=== PATIENT | male | born 1940 | race Caucasian/White ===

== ENCOUNTER 2017-08-15 11:11 | Inpatient (IN) | payer MEDICARE, BC ==
[2017-08-15] VITALS (9 sets, daily range): BP systolic 108–141; BP diastolic 56–72
[~2017-08-15] VITALS: Ht 180.3 cm; Wt 88.0 kg
[~2017-08-15 11:11] MED LIST: CARV-50 PO; CLOP75TA35 PO; DABI150C PO; DULO-31 PO; EZET1TAB41 PO; FLO0.4C PO; ISOS30TA6 PO; LANS30CA37 PO; LANTUS SQ; LISI-604 PO; MULT-1074 PO; ZAR2.5T PO
[2017-08-15 11:46] LABS: BASOPHILS # (AUTO) 0.1 X10'3 (0-0.2); BASOPHILS % (AUTO) 1.1 % (0-1); EOSINOPHILS # (AUTO) 0.2 X10'3 (0-0.9); EOSINOPHILS % (AUTO) 4.3 % (0-6); LYMPHOCYTES # (AUTO) 1.1 X10'3 (1.1-4.8); LYMPHOCYTES % (AUTO) 23.5 % (21-51); MEAN CORPUSCULAR HEMOGLOBIN 18.9 PG (27.0-31.0); MEAN CORPUSCULAR HGB CONC 30.7 % (33.0-36.5); MEAN CORPUSCULAR VOLUME 61.4 FL (78-98); MEAN PLATELET VOLUME 8.1 FL (7.4-10.4); MONOCYTES # (AUTO) 0.3 X10'3 (0-0.9); MONOCYTES % (AUTO) 6.8 % (2-12); NEUTROPHILS # (AUTO) 2.9 X10'3 (1.8-7.7); NEUTROPHILS % (AUTO) 64.3 % (42-75); PLATELET COUNT 201 X10'3 (140-440); RED BLOOD COUNT 2.78 X10'6 (4.70-6.10); RED CELL DISTRIBUTION WIDTH 21.2 % (11.5-14.5); WHITE BLOOD COUNT 4.6 X10'3 (4.5-11.0)
[2017-08-15 11:49] LABS: HEMOGLOBIN 5.2 g/dl (14.0-17.9)
[2017-08-15 11:53] LABS: INR 1.3 INR; PROTHROMBIN TIME 13.7 SECONDS (9.0-12.0)
[2017-08-15] MEDS ORDERED: pantoprazole 40 MG vial IV ONE (11:55)
[2017-08-15] MEDS ORDERED: normal saline 1000ML IV soln IV ONE (11:55)
[2017-08-15] MEDS ORDERED: octreotide inj. 1,250 MCG in normal saline 250ml IV soln 250 ML IV ONE (11:55)
[2017-08-15 11:59] LABS: ALANINE AMINOTRANSFERASE 12 U/L (12-78); ALBUMIN 3.7 G/DL (3.4-5.0); ALBUMIN/GLOBULIN RATIO 1.1 (1.1-1.5); ALKALINE PHOSPHATASE 67 IU/L (46-116); ANION GAP 13 (8-16); ASPARTATE AMINO TRANSFERASE 13 U/L (10-37); BILIRUBIN,TOTAL 0.8 MG/DL (0.1-1.0); BLOOD UREA NITROGEN 58 MG/DL (7-18); BUN/CREATININE RATIO 23.5 (5.4-32.0); CHLORIDE 104 MMOL/L (99-107); CREATININE 2.47 MG/DL (0.60-1.10); GLUCOSE 217 MG/DL (70-104); POTASSIUM 4.4 MMOL/L (3.5-5.1); SODIUM 139 MMOL/L (135-145); TOTAL CARBON DIOXIDE 21.7 MMOL/L (24-32); TOTAL PROTEIN 7.1 G/DL (6.4-8.2); eGFR 26 ML/MIN
[2017-08-15 12:14] LABS: ANISOCYTOSIS 3+; HYPOCHROMASIA 2+; PLATELET ESTIMATE NORMAL; POIKILOCYTOSIS 2+; POLYCHROMASIA FEW; TARGET CELLS 1+
[2017-08-15 12:15] LABS: ACANTHOCYTES FEW; ELLIPTOCYTES FEW; TEAR DROP CELLS FEW
[2017-08-15] MEDS ORDERED: ondansetron/PF 4mg/2ml inj IV ONE (13:35)
[2017-08-15 13:53] LABS: CLARITY,URINE CLEAR (Clear); COLOR,URINE YELLOW (Yellow); GLUCOSE, URINE NEGATIVE (Neg); KETONES,URINE NEGATIVE (Neg); LEUKOCYTE ESTERASE ,URINE NEGATIVE (Neg); NITRITES, URINE NEGATIVE (Neg); OCCULT BLOOD,URINE NEGATIVE (Neg); PH,URINE 5.5 (4.8-8.0); PROTEIN,URINE NEGATIVE (Neg); UROBILINOGEN,URINE 0.2 E.U/dL (0.2-1.0)
[2017-08-15 13:54] LABS: UA COLLECTION TYPE URINAL
[2017-08-15] MEDS ORDERED: glucagon, human recombinant 1mg kit SUBCUT PRN (14:10)
[2017-08-15] MEDS ORDERED: potassium Cl 20 mEq SR tablet PO PRN (14:10)
[2017-08-15] MEDS ORDERED: magnesium 2GM in 50ml NS 50 ML IV PRN (14:10)
[2017-08-15] MEDS ORDERED: magnesium Cl slow-release 64mg tablet PO PRN (14:10)
[2017-08-15] MEDS ORDERED: ondansetron/PF 4mg/2ml inj IV PRN (14:10)
[2017-08-15] MEDS ORDERED: dextrose ORAL solution 15 GM/59 ML bottle PO PRN ×2 (14:10)
[2017-08-15] MEDS ORDERED: HYDROcodone/acetaminophen 10/325mg tab PO PRN (14:10)
[2017-08-15] MEDS ORDERED: magnesium 4gm in 100ml NS 100 ML IV PRN (14:10)
[2017-08-15] MEDS ORDERED: mag hydrox/Alum hydrox/simeth 30ml oral suspension PO PRN (14:10)
[2017-08-15] MEDS ORDERED: MESSAGE TO PHARMACY PO ONE (14:10)
[2017-08-15] MEDS ORDERED: potassium Cl 40MEQ/NS 500ml 500 ML IV PRN ×2 (14:10)
[2017-08-15] MEDS ORDERED: insulin Lispro (HumaLOG) vial - multi-dose SQ SCH (14:10)
[2017-08-15] MEDS ORDERED: dextrose 50%-water 50ml dispensing syringe IV PRN ×2 (14:10)
[2017-08-15] MEDS ORDERED: magnesium hydroxide 30ml (MOM) UD suspension PO PRN (14:10)
[2017-08-15] MEDS ORDERED: HYDROcodone/acetaminophen 5mg/325mg tablet PO PRN (14:10)
[2017-08-15] MEDS ORDERED: acetaminophen 325mg tablet PO PRN ×2 (14:10)
[2017-08-15 15:43] LABS: HEMOGLOBIN A1C 8.4 % (4.5-6.2)
[2017-08-15] MEDS ORDERED: pantoprazole 40MG/NS 100ML BAG 100 ML IV SCH (16:00)
[2017-08-15] MEDS: pantoprazole 40MG/NS 100ML BAG 100 ML IV SCH ×3 (18:47→23:22)
[2017-08-15] MEDS: normal saline 1000ml 1,000 ML IV SCH ×2 (18:56→22:09)
[2017-08-15] MEDS ORDERED: proCHLORperazine 10 MG/2 ml inj IV PRN (19:30)
[2017-08-15] MEDS: pravastatin 40mg tablet PO SCH (21:00)
[2017-08-15] MEDS: insulin glargine (Lantus) pen - multi-dose SQ SCH (21:00)
[2017-08-15 22:01] LABS: BASOPHILS % (AUTO) 0 % (0-1); EOSINOPHILS # (AUTO) 0.2 X10'3 (0-0.9); EOSINOPHILS % (AUTO) 2.8 % (0-6); HEMATOCRIT 26.8 % (42.0-52.0); HEMOGLOBIN 8.5 g/dl (14.0-17.9); LYMPHOCYTES # (AUTO) 1.4 X10'3 (1.1-4.8); LYMPHOCYTES % (AUTO) 21.1 % (21-51); MEAN CORPUSCULAR HEMOGLOBIN 21.3 PG (27.0-31.0); MEAN CORPUSCULAR HGB CONC 31.6 % (33.0-36.5); MEAN CORPUSCULAR VOLUME 67.4 FL (78-98); MEAN PLATELET VOLUME 8.5 FL (7.4-10.4); MONOCYTES # (AUTO) 0.6 X10'3 (0-0.9); MONOCYTES % (AUTO) 8.7 % (2-12); NEUTROPHILS # (AUTO) 4.5 X10'3 (1.8-7.7); NEUTROPHILS % (AUTO) 67.4 % (42-75); PLATELET COUNT 175 X10'3 (140-440); RED BLOOD COUNT 3.98 X10'6 (4.70-6.10); RED CELL DISTRIBUTION WIDTH 25.2 % (11.5-14.5); WHITE BLOOD COUNT 6.7 X10'3 (4.5-11.0)
[2017-08-15] MEDS: temazepam 15mg capsule PO PRN (22:52)
[2017-08-15] MEDS ORDERED: ipratropium/albuterol 3ml nebule ONE (23:27)
[2017-08-16] VITALS (11 sets, daily range): BP systolic 108–134; BP diastolic 54–74
[2017-08-16] MEDS: temazepam 15mg capsule PO PRN (02:09)
[2017-08-16] MEDS: normal saline 1000ml 1,000 ML IV SCH ×2 (02:38→15:54)
[2017-08-16] MEDS: ipratropium/albuterol 3ml nebule NEB PRN (04:11)
[2017-08-16] MEDS: pantoprazole 40MG/NS 100ML BAG 100 ML IV SCH ×4 (04:34→21:03)
[2017-08-16] MEDS ORDERED: furosemide 20 MG/2 ML vial IV ONE (05:30)
[2017-08-16 06:41] LABS: ALANINE AMINOTRANSFERASE 23 U/L (12-78); ALBUMIN 3.4 G/DL (3.4-5.0); ALKALINE PHOSPHATASE 75 IU/L (46-116); ANION GAP 11 (8-16); ASPARTATE AMINO TRANSFERASE 17 U/L (10-37); BILIRUBIN,TOTAL 1.7 MG/DL (0.1-1.0); BLOOD UREA NITROGEN 43 MG/DL (7-18); BUN/CREATININE RATIO 22.1 (5.4-32.0); CALCIUM 8.2 MG/DL (8.5-10.1); CHLORIDE 109 MMOL/L (99-107); CREATININE 1.95 MG/DL (0.60-1.10); GLUCOSE 157 MG/DL (70-104); POTASSIUM 4.4 MMOL/L (3.5-5.1); SODIUM 142 MMOL/L (135-145); TOTAL CARBON DIOXIDE 21.7 MMOL/L (24-32); TOTAL PROTEIN 6.8 G/DL (6.4-8.2); eGFR 34 ML/MIN
[2017-08-16 06:51] LABS: BASOPHILS % (AUTO) 0.2 % (0-1); EOSINOPHILS # (AUTO) 0.2 X10'3 (0-0.9); EOSINOPHILS % (AUTO) 2.9 % (0-6); HEMATOCRIT 23.4 % (42.0-52.0); HEMOGLOBIN 7.3 g/dl (14.0-17.9); LYMPHOCYTES # (AUTO) 1.2 X10'3 (1.1-4.8); MEAN CORPUSCULAR HEMOGLOBIN 21.3 PG (27.0-31.0); MEAN CORPUSCULAR HGB CONC 31.3 % (33.0-36.5); MEAN CORPUSCULAR VOLUME 68.1 FL (78-98); MEAN PLATELET VOLUME 8.7 FL (7.4-10.4); MONOCYTES # (AUTO) 0.3 X10'3 (0-0.9); MONOCYTES % (AUTO) 4.7 % (2-12); NEUTROPHILS % (AUTO) 74.2 % (42-75); PLATELET COUNT 187 X10'3 (140-440); RED BLOOD COUNT 3.44 X10'6 (4.70-6.10); RED CELL DISTRIBUTION WIDTH 25.2 % (11.5-14.5); WHITE BLOOD COUNT 6.8 X10'3 (4.5-11.0)
[2017-08-16 07:56] LABS: ANISOCYTOSIS 3+; HYPOCHROMASIA 1+; MICROCYTOSIS 2+; PLATELET ESTIMATE NORMAL; POLYCHROMASIA 2+
[2017-08-16 07:57] LABS: POIKILOCYTOSIS 1+; TARGET CELLS FEW; TEAR DROP CELLS FEW
[2017-08-16] MEDS: K and/or MAG REPLACEMENT MC SCH (08:00)
[2017-08-16] MEDS: duloxetine 30mg CAPSULE.DR PO SCH (09:22)
[2017-08-16] MEDS: tamsulosin 0.4mg capsule PO SCH (09:22)
[2017-08-16] MEDS ORDERED: fentaNYL/PF 50MCG/1 ML 2ML syringe ONE (14:22)
[2017-08-16] MEDS ORDERED: MIDAZolam 5mg/ml 2ml vial ONE (14:23)
[2017-08-16] MEDS ORDERED: LIDOcaine Viscous 15ml cup ONE (14:23)
[2017-08-16] MEDS ORDERED: normal saline 1000ml 1,000 ML IV SCH (15:21)
[2017-08-16] MEDS ORDERED: lidocaine 2% viscous 15 ML cup ***bronch room only MM ONE (15:25)
[2017-08-16] MEDS ORDERED: LIDOcaine Viscous 15ml cup PO ONE (15:25)
[2017-08-16] MEDS ORDERED: simethicone 40mg/0.6ml oral drops 30ml MC ONE (15:25)
[2017-08-16] MEDS ORDERED: MIDAZolam 5mg/5ml vial IV PRN (15:25)
[2017-08-16] MEDS ORDERED: fentaNYL/PF 50MCG/1 ML 2ML syringe IV PRN (15:25)
[2017-08-16] MEDS ORDERED: PEG 3350/Na sulf,bicarb,Cl/KCl oral sol 4 liter bottle PO ONE (17:00)
[2017-08-16 19:08] LABS: BASOPHILS % (AUTO) 0 % (0-1); EOSINOPHILS # (AUTO) 0.2 X10'3 (0-0.9); EOSINOPHILS % (AUTO) 4.2 % (0-6); HEMATOCRIT 23.8 % (42.0-52.0); HEMOGLOBIN 7.4 g/dl (14.0-17.9); LYMPHOCYTES # (AUTO) 1.1 X10'3 (1.1-4.8); LYMPHOCYTES % (AUTO) 20.9 % (21-51); MEAN CORPUSCULAR HEMOGLOBIN 20.9 PG (27.0-31.0); MEAN CORPUSCULAR HGB CONC 30.9 % (33.0-36.5); MEAN CORPUSCULAR VOLUME 67.7 FL (78-98); MEAN PLATELET VOLUME 9.1 FL (7.4-10.4); MONOCYTES # (AUTO) 0.4 X10'3 (0-0.9); MONOCYTES % (AUTO) 6.9 % (2-12); NEUTROPHILS # (AUTO) 3.5 X10'3 (1.8-7.7); PLATELET COUNT 235 X10'3 (140-440); RED BLOOD COUNT 3.52 X10'6 (4.70-6.10); RED CELL DISTRIBUTION WIDTH 25.3 % (11.5-14.5); WHITE BLOOD COUNT 5.2 X10'3 (4.5-11.0)
[2017-08-16] MEDS: insulin glargine (Lantus) pen - multi-dose SQ SCH (21:00)
[2017-08-16] MEDS: pravastatin 40mg tablet PO SCH (21:02)
[2017-08-17] VITALS (7 sets, daily range): BP systolic 110–138; BP diastolic 66–90
[2017-08-17] MEDS: ipratropium/albuterol 3ml nebule NEB PRN ×3 (00:56→20:16)
[2017-08-17] MEDS: pantoprazole 40MG/NS 100ML BAG 100 ML IV SCH ×5 (02:03→21:25)
[2017-08-17] MEDS: normal saline 1000ml 1,000 ML IV SCH (05:02)
[2017-08-17 05:58] LABS: BASOPHILS # (AUTO) 0.1 X10'3 (0-0.2); BASOPHILS % (AUTO) 0.7 % (0-1); EOSINOPHILS # (AUTO) 0.2 X10'3 (0-0.9); EOSINOPHILS % (AUTO) 2.1 % (0-6); HEMATOCRIT 22.9 % (42.0-52.0); LYMPHOCYTES # (AUTO) 1.1 X10'3 (1.1-4.8); LYMPHOCYTES % (AUTO) 15.2 % (21-51); MEAN CORPUSCULAR HEMOGLOBIN 20.8 PG (27.0-31.0); MEAN CORPUSCULAR HGB CONC 30.8 % (33.0-36.5); MEAN CORPUSCULAR VOLUME 67.7 FL (78-98); MEAN PLATELET VOLUME 8.6 FL (7.4-10.4); MONOCYTES # (AUTO) 0.6 X10'3 (0-0.9); MONOCYTES % (AUTO) 7.9 % (2-12); NEUTROPHILS # (AUTO) 5.5 X10'3 (1.8-7.7); NEUTROPHILS % (AUTO) 74.1 % (42-75); PLATELET COUNT 181 X10'3 (140-440); RED BLOOD COUNT 3.38 X10'6 (4.70-6.10); RED CELL DISTRIBUTION WIDTH 25.8 % (11.5-14.5); WHITE BLOOD COUNT 7.4 X10'3 (4.5-11.0)
[2017-08-17 07:10] LABS: ALANINE AMINOTRANSFERASE 21 U/L (12-78); ALBUMIN 3.4 G/DL (3.4-5.0); ALKALINE PHOSPHATASE 71 IU/L (46-116); ANION GAP 14 (8-16); ASPARTATE AMINO TRANSFERASE 17 U/L (10-37); BILIRUBIN,TOTAL 1.6 MG/DL (0.1-1.0); BLOOD UREA NITROGEN 32 MG/DL (7-18); BUN/CREATININE RATIO 16.7 (5.4-32.0); CALCIUM 8.2 MG/DL (8.5-10.1); CHLORIDE 106 MMOL/L (99-107); CREATININE 1.92 MG/DL (0.60-1.10); GLUCOSE 174 MG/DL (70-104); MAGNESIUM 1.7 MG/DL (1.5-2.4); SODIUM 141 MMOL/L (135-145); TOTAL CARBON DIOXIDE 21.3 MMOL/L (24-32); TOTAL PROTEIN 6.8 G/DL (6.4-8.2); eGFR 34 ML/MIN
[2017-08-17 07:14] LABS: ANISOCYTOSIS 3+; MICROCYTOSIS 2+; PLATELET ESTIMATE NORMAL
[2017-08-17 07:15] LABS: ELLIPTOCYTES 1+; HYPOCHROMASIA 1+; POLYCHROMASIA 2+; SCHISTOCYTES FEW; TEAR DROP CELLS FEW
[2017-08-17] MEDS: K and/or MAG REPLACEMENT MC SCH (07:45)
[2017-08-17] MEDS: tamsulosin 0.4mg capsule PO SCH (07:47)
[2017-08-17] MEDS: duloxetine 30mg CAPSULE.DR PO SCH (07:47)
[2017-08-17] MEDS ORDERED: normal saline 1000ml 1,000 ML IV SCH (09:54)
[2017-08-17] MEDS ORDERED: simethicone 40mg/0.6ml oral drops 30ml MC ONE (09:55)
[2017-08-17] MEDS ORDERED: fentaNYL/PF 50MCG/1 ML 2ML syringe IV PRN (09:55)
[2017-08-17] MEDS ORDERED: MIDAZolam 5mg/5ml vial IV PRN (09:55)
[2017-08-17] MEDS ORDERED: fentaNYL/PF 50MCG/1 ML 2ML syringe ONE (10:55)
[2017-08-17] MEDS ORDERED: MIDAZolam 5mg/ml 2ml vial ONE (10:55)
[2017-08-17 14:38] LABS: BASOPHILS % (AUTO) 0.5 % (0-1); EOSINOPHILS # (AUTO) 0.2 X10'3 (0-0.9); EOSINOPHILS % (AUTO) 3.1 % (0-6); HEMATOCRIT 23.6 % (42.0-52.0); HEMOGLOBIN 7.3 g/dl (14.0-17.9); LYMPHOCYTES # (AUTO) 0.9 X10'3 (1.1-4.8); LYMPHOCYTES % (AUTO) 17.7 % (21-51); MEAN CORPUSCULAR HEMOGLOBIN 20.6 PG (27.0-31.0); MEAN CORPUSCULAR VOLUME 66.5 FL (78-98); MEAN PLATELET VOLUME 10.4 FL (7.4-10.4); MONOCYTES # (AUTO) 0.3 X10'3 (0-0.9); MONOCYTES % (AUTO) 6.3 % (2-12); NEUTROPHILS # (AUTO) 3.7 X10'3 (1.8-7.7); NEUTROPHILS % (AUTO) 72.4 % (42-75); PLATELET COUNT 197 X10'3 (140-440); RED BLOOD COUNT 3.55 X10'6 (4.70-6.10); RED CELL DISTRIBUTION WIDTH 25.4 % (11.5-14.5); WHITE BLOOD COUNT 5.1 X10'3 (4.5-11.0)
[2017-08-17] MEDS: insulin glargine (Lantus) pen - multi-dose SQ SCH (21:00)
[2017-08-17] MEDS: pravastatin 40mg tablet PO SCH (21:00)
[2017-08-17] MEDS: temazepam 15mg capsule PO PRN (23:59)
[2017-08-18] VITALS (11 sets, daily range): BP systolic 114–136; BP diastolic 64–74
[2017-08-18] MEDS: normal saline 1000ml 1,000 ML IV SCH ×3 (02:12→23:12)
[2017-08-18] MEDS: pantoprazole 40MG/NS 100ML BAG 100 ML IV SCH ×4 (02:16→19:26)
[2017-08-18 05:50] LABS: BASOPHILS # (AUTO) 0.1 X10'3 (0-0.2); BASOPHILS % (AUTO) 1.2 % (0-1); EOSINOPHILS # (AUTO) 0.2 X10'3 (0-0.9); EOSINOPHILS % (AUTO) 4.8 % (0-6); LYMPHOCYTES # (AUTO) 0.8 X10'3 (1.1-4.8); LYMPHOCYTES % (AUTO) 16.3 % (21-51); MEAN CORPUSCULAR HEMOGLOBIN 20.9 PG (27.0-31.0); MEAN CORPUSCULAR HGB CONC 30.7 % (33.0-36.5); MEAN PLATELET VOLUME 8.5 FL (7.4-10.4); MONOCYTES # (AUTO) 0.4 X10'3 (0-0.9); MONOCYTES % (AUTO) 7.3 % (2-12); NEUTROPHILS # (AUTO) 3.5 X10'3 (1.8-7.7); NEUTROPHILS % (AUTO) 70.4 % (42-75); PLATELET COUNT 164 X10'3 (140-440); RED BLOOD COUNT 3.22 X10'6 (4.70-6.10)
[2017-08-18 05:57] LABS: HEMATOCRIT 21.9 % (42.0-52.0); HEMOGLOBIN 6.7 g/dl (14.0-17.9)
[2017-08-18 06:34] LABS: ANISOCYTOSIS 3+; HYPOCHROMASIA 1+; MICROCYTOSIS 2+; PLATELET ESTIMATE NORMAL; POIKILOCYTOSIS FEW; POLYCHROMASIA 2+; TARGET CELLS FEW
[2017-08-18 06:35] LABS: ALANINE AMINOTRANSFERASE 19 U/L (12-78); ALBUMIN 3.1 G/DL (3.4-5.0); ALBUMIN/GLOBULIN RATIO 0.9 (1.1-1.5); ALKALINE PHOSPHATASE 65 IU/L (46-116); ANION GAP 14 (8-16); ASPARTATE AMINO TRANSFERASE 16 U/L (10-37); BILIRUBIN,TOTAL 1.4 MG/DL (0.1-1.0); BLOOD UREA NITROGEN 20 MG/DL (7-18); BUN/CREATININE RATIO 13.2 (5.4-32.0); CALCIUM 8.1 MG/DL (8.5-10.1); CHLORIDE 106 MMOL/L (99-107); CREATININE 1.52 MG/DL (0.60-1.10); ELLIPTOCYTES 1+; GLUCOSE 149 MG/DL (70-104); MAGNESIUM 1.7 MG/DL (1.5-2.4); POTASSIUM 3.4 MMOL/L (3.5-5.1); SODIUM 142 MMOL/L (135-145); TOTAL PROTEIN 6.4 G/DL (6.4-8.2); eGFR 45 ML/MIN
[2017-08-18] MEDS: K and/or MAG REPLACEMENT MC SCH (06:52)
[2017-08-18] MEDS: tamsulosin 0.4mg capsule PO SCH (06:56)
[2017-08-18] MEDS: potassium Cl 20 mEq SR tablet PO PRN ×2 (06:56→14:03)
[2017-08-18] MEDS: duloxetine 30mg CAPSULE.DR PO SCH (06:56)
[2017-08-18] MEDS: levoFLOXACIN-Levaquin 750MG/D5 150 ML IV SCH (07:01)
[2017-08-18] MEDS ORDERED: acetaminophen 325mg tablet PO ONE (08:40)
[2017-08-18] MEDS ORDERED: diphenhydrAMINE 25mg capsule PO ONE (08:40)
[2017-08-18] MEDS ORDERED: furosemide 20 MG/2 ML vial IV ONE (08:40)
[2017-08-18] MEDS ORDERED: heparin sodium, porcine/PF 100unit/ml 5ML syringe ONE (09:42)
[2017-08-18 15:06] LABS: EOSINOPHILS # (AUTO) 0.2 X10'3 (0-0.9); EOSINOPHILS % (AUTO) 4.8 % (0-6); HEMATOCRIT 24.1 % (42.0-52.0); HEMOGLOBIN 7.5 g/dl (14.0-17.9); LYMPHOCYTES # (AUTO) 0.9 X10'3 (1.1-4.8); LYMPHOCYTES % (AUTO) 18.9 % (21-51); MEAN CORPUSCULAR HEMOGLOBIN 21.9 PG (27.0-31.0); MEAN CORPUSCULAR HGB CONC 31.1 % (33.0-36.5); MEAN CORPUSCULAR VOLUME 70.5 FL (78-98); MEAN PLATELET VOLUME 9.1 FL (7.4-10.4); MONOCYTES # (AUTO) 0.4 X10'3 (0-0.9); MONOCYTES % (AUTO) 8.3 % (2-12); NEUTROPHILS # (AUTO) 3.3 X10'3 (1.8-7.7); PLATELET COUNT 191 X10'3 (140-440); RED BLOOD COUNT 3.41 X10'6 (4.70-6.10); RED CELL DISTRIBUTION WIDTH 28.3 % (11.5-14.5)
[2017-08-18] MEDS: pravastatin 40mg tablet PO SCH (20:58)
[2017-08-18] MEDS: insulin glargine (Lantus) pen - multi-dose SQ SCH (21:00)
[2017-08-18] MEDS: temazepam 15mg capsule PO PRN (21:00)
[2017-08-18 21:48] LABS: HEMATOCRIT 26.1 % (42.0-52.0); HEMOGLOBIN 8.3 g/dl (14.0-17.9); MEAN CORPUSCULAR HEMOGLOBIN 22.3 PG (27.0-31.0); MEAN CORPUSCULAR HGB CONC 31.9 % (33.0-36.5); MEAN CORPUSCULAR VOLUME 70.1 FL (78-98); MEAN PLATELET VOLUME 10.6 FL (7.4-10.4); PLATELET COUNT 193 X10'3 (140-440); RED BLOOD COUNT 3.73 X10'6 (4.70-6.10); RED CELL DISTRIBUTION WIDTH 28.7 % (11.5-14.5); WHITE BLOOD COUNT 5.3 X10'3 (4.5-11.0)
[2017-08-19] VITALS: BP 141/74
[2017-08-19] MEDS: pantoprazole 40MG/NS 100ML BAG 100 ML IV SCH ×5 (00:41→16:00)
[2017-08-19 07:00] VITALS: BP 137/79
[2017-08-19] MEDS: tamsulosin 0.4mg capsule PO SCH (07:28)
[2017-08-19] MEDS: duloxetine 30mg CAPSULE.DR PO SCH (07:28)
[2017-08-19] MEDS: levoFLOXACIN-Levaquin 750MG/D5 150 ML IV SCH (07:28)
[2017-08-19 07:56] LABS: BASOPHILS # (AUTO) 0.1 X10'3 (0-0.2); EOSINOPHILS # (AUTO) 0.1 X10'3 (0-0.9); EOSINOPHILS % (AUTO) 2.9 % (0-6); HEMATOCRIT 27.1 % (42.0-52.0); HEMOGLOBIN 8.6 g/dl (14.0-17.9); LYMPHOCYTES % (AUTO) 20.3 % (21-51); MEAN CORPUSCULAR HEMOGLOBIN 22.6 PG (27.0-31.0); MEAN CORPUSCULAR HGB CONC 31.6 % (33.0-36.5); MEAN CORPUSCULAR VOLUME 71.7 FL (78-98); MONOCYTES # (AUTO) 0.5 X10'3 (0-0.9); NEUTROPHILS # (AUTO) 3.3 X10'3 (1.8-7.7); NEUTROPHILS % (AUTO) 65.8 % (42-75); PLATELET COUNT 184 X10'3 (140-440); RED BLOOD COUNT 3.78 X10'6 (4.70-6.10); RED CELL DISTRIBUTION WIDTH 29.3 % (11.5-14.5)
[2017-08-19] MEDS: K and/or MAG REPLACEMENT MC SCH (08:00)
[2017-08-19] MEDS ORDERED: furosemide 20 MG/2 ML vial IV SCH (08:00)
[2017-08-19 08:37] LABS: % IRON SATURATION 5 % (11-46); IRON 20 UG/DL (53-167); TOTAL IRON BINDING CAPACITY 389 UG/DL (259-388)
[2017-08-19 09:02] LABS: ALANINE AMINOTRANSFERASE 19 U/L (12-78); ALBUMIN 3.2 G/DL (3.4-5.0); ALBUMIN/GLOBULIN RATIO 0.9 (1.1-1.5); ALKALINE PHOSPHATASE 72 IU/L (46-116); ANION GAP 15 (8-16); ASPARTATE AMINO TRANSFERASE 15 U/L (10-37); BLOOD UREA NITROGEN 18 MG/DL (7-18); BUN/CREATININE RATIO 11.3 (5.4-32.0); CALCIUM 8.5 MG/DL (8.5-10.1); CHLORIDE 107 MMOL/L (99-107); FERRITIN 21 NG/ML (26-388); GLUCOSE 148 MG/DL (70-104); MAGNESIUM 1.5 MG/DL (1.5-2.4); POTASSIUM 3.8 MMOL/L (3.5-5.1); SODIUM 143 MMOL/L (135-145); TOTAL CARBON DIOXIDE 21.5 MMOL/L (24-32); TOTAL PROTEIN 6.9 G/DL (6.4-8.2); eGFR 42 ML/MIN
[2017-08-19 11:00] VITALS: BP 147/93
[2017-08-19 12:12] LABS: PLATELET ESTIMATE NORMAL
[2017-08-19 12:27] LABS: ANISOCYTOSIS 3+
[2017-08-19 12:28] LABS: ELLIPTOCYTES 1+; HYPOCHROMASIA 2+; MICROCYTOSIS 1+; TEAR DROP CELLS 1+
[2017-08-19 12:40] LABS: POLYCHROMASIA 2+
[2017-08-19] MEDS: normal saline 1000ml 1,000 ML IV SCH (14:09)
[2017-08-19 14:22] LABS: BASOPHILS % (AUTO) 0 % (0-1); EOSINOPHILS # (AUTO) 0.3 X10'3 (0-0.9); EOSINOPHILS % (AUTO) 4.6 % (0-6); HEMATOCRIT 28.7 % (42.0-52.0); HEMOGLOBIN 9.2 g/dl (14.0-17.9); LYMPHOCYTES % (AUTO) 15.4 % (21-51); MEAN CORPUSCULAR VOLUME 71.8 FL (78-98); MEAN PLATELET VOLUME 10.6 FL (7.4-10.4); MONOCYTES # (AUTO) 0.6 X10'3 (0-0.9); MONOCYTES % (AUTO) 9.1 % (2-12); NEUTROPHILS # (AUTO) 4.6 X10'3 (1.8-7.7); NEUTROPHILS % (AUTO) 70.9 % (42-75); PLATELET COUNT 236 X10'3 (140-440); RED BLOOD COUNT 3.99 X10'6 (4.70-6.10); RED CELL DISTRIBUTION WIDTH 29.8 % (11.5-14.5); WHITE BLOOD COUNT 6.4 X10'3 (4.5-11.0)
[2017-08-19] MEDS ORDERED: VITC500T PO (18:07)
[2017-08-19] MEDS ORDERED: FURO-149 PO (18:13)
[2017-08-19] MEDS ORDERED: FERR325T28 PO (18:14)
[2017-08-19] MEDS ORDERED: SENN-161 PO (18:14)
[2017-08-19 19:15] VITALS: BP 132/76
[2017-08-19] MEDS ORDERED: lactobacillus rhamnosus 10,000 MMU CELLS/CAPSULE PO SCH (20:00)
[2017-08-20] MEDS ORDERED: levoFLOXACIN 750MG TABLET PO SCH (11:00)
[2017-08-21] MEDS ORDERED: levoFLOXACIN 750MG TABLET PO SCH (08:00)
[2017-08-21 12:02] LABS: OCCULT BLOOD STOOL POSITIVE (Neg)
== END 2017-08-19 19:40 | disposition home or self-care (01) | DRG 377 ==
LOC: ER 11:12 → ED HOLD 13:35 → MED 3N 15:11
PROVIDERS: ADMIT Internal Medicine; ATTEND Family Medicine
PROC: 30233N1 Transfusion of Nonautologous Red Blood Cells into Peripheral Vein, Percutaneous Approach (ICD-10-PCS; 2017-08-15)
PROC: 0DJ08ZZ Inspection of Upper Intestinal Tract, Via Natural or Artificial Opening Endoscopic (ICD-10-PCS; principal; 2017-08-16)
PROC: 0DBK8ZX Excision of Ascending Colon, Via Natural or Artificial Opening Endoscopic, Diagnostic (ICD-10-PCS; 2017-08-17)
PROC: 0DBL8ZX Excision of Transverse Colon, Via Natural or Artificial Opening Endoscopic, Diagnostic (ICD-10-PCS; 2017-08-17)
PROC: 0DBN8ZX Excision of Sigmoid Colon, Via Natural or Artificial Opening Endoscopic, Diagnostic (ICD-10-PCS; 2017-08-17)
PROC: 0DBH8ZX Excision of Cecum, Via Natural or Artificial Opening Endoscopic, Diagnostic (ICD-10-PCS; 2017-08-17)
PROC: CD271ZZ Tomographic (Tomo) Nuclear Medicine Imaging of Gastrointestinal Tract using Technetium 99m (Tc-99m) (ICD-10-PCS; 2017-08-18)
DX: K92.2 Gastrointestinal hemorrhage, unspecified (principal); J18.9 Pneumonia, unspecified organism; I13.0 Hypertensive heart and chronic kidney disease with heart failure and stage 1 through stage 4 chronic kidney disease, or unspecified chronic kidney disease; E11.22 Type 2 diabetes mellitus with diabetic chronic kidney disease; N18.4 Chronic kidney disease, stage 4 (severe); E86.0 Dehydration; I50.22 Chronic systolic (congestive) heart failure; D12.0 Benign neoplasm of cecum; D12.3 Benign neoplasm of transverse colon; N40.0 Benign prostatic hyperplasia without lower urinary tract symptoms; D50.9 Iron deficiency anemia, unspecified; E78.00 Pure hypercholesterolemia, unspecified; E78.5 Hyperlipidemia, unspecified; I25.10 Atherosclerotic heart disease of native coronary artery without angina pectoris; I25.2 Old myocardial infarction; Z79.4 Long term (current) use of insulin; Z95.1 Presence of aortocoronary bypass graft; Z88.5 Allergy status to narcotic agent
CPT/HCPCS: 36415; 45380; 45382; 45385; 71045; 71250; 78278; 80053; 81003; 82272; 82728; 82948; 83036; 83540; 83550; 83735; 83880; 85025; 85027; 85610; 86885; 86900; 86901; 86920; 88305; 93306; 94640; 94760; 96361; 96374; 99285; A4620; A9560; C9113; G0500; J0780; J1642; J1815; J1940; J1956; J2250; J2354; J2405; J3010; J7030; P9016; Q0163